=== PATIENT | female | born 1990 | race African-American/Black ===

== ENCOUNTER 2020-08-23 09:56 | Emergency (ER) | payer SELFPAY | END 2020-08-23 15:38 | disposition home or self-care (01) | LOC: CSHERS 09:56 | DX: M79.605 Pain in left leg (principal) ==

== ENCOUNTER 2021-04-14 08:04 | Emergency (ER) | payer MEDICAID, SELFPAY | END 2021-04-14 08:47 | disposition home or self-care (01) | LOC: CSHERS 08:04 | DX: K02.9 Dental caries, unspecified (principal); F17.210 Nicotine dependence, cigarettes, uncomplicated | CPT/HCPCS: 99283 ==

== ENCOUNTER 2021-09-09 22:52 | Day surgery (SDC) | payer OTHER ==
[2021-09-09 23:19] VITALS: BMI 31.1
[2021-09-09] MEDS ORDERED: hydrALAZINE 20 MG/ML VIAL SLOW IVP PRN (23:48)
== END 2021-09-10 01:30 | disposition home or self-care (01) ==
LOC: CSHLD/OP 22:52
PROVIDERS: ATTEND Obstetrics & Gynecology
DX: O99.891 Other specified diseases and conditions complicating pregnancy (principal); R10.2 Pelvic and perineal pain; O99.613 Diseases of the digestive system complicating pregnancy, third trimester; K21.9 Gastro-esophageal reflux disease without esophagitis; O99.013 Anemia complicating pregnancy, third trimester; D50.9 Iron deficiency anemia, unspecified; O99.333 Smoking (tobacco) complicating pregnancy, third trimester; F17.210 Nicotine dependence, cigarettes, uncomplicated; O34.219 Maternal care for unspecified type scar from previous cesarean delivery; Z3A.29 29 weeks gestation of pregnancy
CPT/HCPCS: 76815; 87480; 87510; 87660; 99284

== ENCOUNTER 2021-09-18 21:44 | Inpatient (IN) | payer OTHER ==
[2021-09-18] MEDS ORDERED: Betamet Acet/Betamet Na Ph 30 MG/5 ML VIAL ONE (22:24)
[2021-09-18] MEDS ORDERED: Ondansetron PF 4 MG/2 ML Vial IVP PRN ×2 (22:32→23:56)
[2021-09-18] MEDS ORDERED: Bicitra 30 ML UDCUP PO PRN (22:32)
[2021-09-18] MEDS ORDERED: hydrALAZINE 20 MG/ML VIAL SLOW IVP PRN (22:32)
[2021-09-18] MEDS ORDERED: Famotidine/PF 20 mg/2ml Vial SLOW IVP PRN (22:32)
[2021-09-18] MEDS ORDERED: Promethazine HCl 25 MG/ML VIAL IM PRN ×2 (22:32→23:56)
[2021-09-18] MEDS ORDERED: ceFAZolin 2 GM/Dextrose 50 ML IVPB ONE (22:41)
[2021-09-18] MEDS ORDERED: Famotidine/PF 20 mg/2ml Vial ONE (22:44)
[2021-09-18] MEDS ORDERED: Lactated Ringer's 1,000 ML IV SCH ×2 (22:45)
[2021-09-18] MEDS ORDERED: ceFAZolin 2 GM/Dextrose 50 ML 2 GM in Premix Bag 1 BAG IVPB SCH (22:45)
[2021-09-18 22:47] LABS: Hemoglobin 6.5 g/dL (12.0-15.5); Mean Corpuscular HGB CONC 29.4 g/dL (32.0-36.0); Mean Corpuscular Hemoglobin 19.5 pg (27.0-33.0); Mean Corpuscular Volume 66.4 fl (81.6-98.3); Mean Platelet Volume 10.6 fl (7.4-10.4); Platelet Count 290 10x3/uL (150-450); Red Blood Cell (RBC) Count 3.33 10x6/uL (3.90-5.03); White Blood Cell (WBC) Count 8.1 10x3/uL (3.5-10.5)
[2021-09-18] MEDS ORDERED: Fentanyl 100 MCG/2 ML VIAL ONE ×2 (22:49→23:27)
[2021-09-18] MEDS ORDERED: Succinylcholine 200 MG/10 ml SYRINGE FS ONE (22:49)
[2021-09-18] MEDS ORDERED: PROPOFOL 20 ML ONE (22:49)
[2021-09-18 22:57] LABS: ALT (SGPT) 6 U/L (8-55); AST (SGOT) 13 U/L (5-34); Albumin 3.3 g/dL (3.5-5.0); Alkaline Phosphatase 104 U/L (40-110); Anion Gap 13 mmol/L (10-20); BUN (Urea Nitrogen) 7 mg/dL (7.0-18.7); Bilirubin, Total 0.4 mg/dL (0.2-1.2); Calc. Creatinine Clearance 0 mL/min (70-130); Calcium 8.8 mg/dL (7.8-10.44); Carbon Dioxide 19 mmol/L (22-29); Chloride 106 mmol/L (98-107); Globulin 3.2 g/dL (2.4-3.5); Glucose 76 mg/dL (70-105); Potassium 3.8 mmol/L (3.5-5.1); Protein, Total 6.5 g/dL (6.0-8.3); Sodium 134 mmol/L (136-145)
[2021-09-18] MEDS ORDERED: PHENYLEPHRINE-NS 100 MCG/ML 10 ML SYRINGE ONE (23:00)
[2021-09-18] MEDS ORDERED: Ondansetron PF 4 MG/2 ML Vial ONE (23:10)
[2021-09-18] MEDS ORDERED: Dexamethasone 4 mg/ml Vial ONE (23:10)
[2021-09-18 23:14] LABS: Hep B Surf Ag Non-Reactive S/CO (NonReactive); Syphilis Antibody Nonreactive (Nonreactive); Syphilis Antibody Index 0.19 S/CO (<1.00 Non-Reactive)
[2021-09-18] MEDS ORDERED: Ketamine 50 MG/ML (10ML VIAL) ONE (23:15)
[2021-09-18] MEDS ORDERED: Glycopyrrolate 0.2 MG/ML 5 ML SYRINGE ONE (23:16)
[2021-09-18 23:21] LABS: HBSAg Index 0.22 S/CO (0-0.99)
[2021-09-18] MEDS ORDERED: Ketorolac Tromethamine 30 MG/ML VIAL ONE (23:35)
[2021-09-18 23:43] LABS: pH (Cord, venous) 7.228 (7.250-7.350)
[2021-09-18] MEDS ORDERED: Communication Order-Pharmacy FS SCH (23:45)
[2021-09-18] MEDS ORDERED: Ketorolac Tromethamine 30 MG/ML VIAL IVP SCH (23:45)
[2021-09-18] MEDS ORDERED: Fentanyl 100 MCG/2 ML VIAL SLOW IVP PRN (23:56)
[2021-09-18] MEDS ORDERED: diphenhydrAMINE 50 MG/ML VIAL IVP PRN (23:56)
[2021-09-18] MEDS ORDERED: Meperidine HCl/PF 25 MG/ML VIAL SLOW IVP PRN (23:56)
[2021-09-18] MEDS ORDERED: fentaNYL Citrate/PF 1,000 MCG in Sodium Chloride 0.9% 30 ML IV PRN (23:56)
[2021-09-18] MEDS ORDERED: Naloxone HCl 0.4 mg/ml Vial IV PRN (23:56)
[2021-09-18] MEDS ORDERED: diphenhydrAMINE 25 MG CAP PO PRN (23:56)
[2021-09-18] MEDS ORDERED: Zolpidem Tartrate 5 MG TAB PO PRN (23:56)
[2021-09-18] MEDS ORDERED: Ondansetron HCl/PF 4 MG/2 ML Vial IVP PRN (23:56)
[2021-09-18] MEDS ORDERED: diphenhydrAMINE 50 MG/ML VIAL IM PRN (23:56)
[2021-09-19 01:42] VITALS: BMI 44.8
[2021-09-19] MEDS ORDERED: HYDROcodone/Acetaminophen 5/325 mg Tablet PO PRN (05:15)
[2021-09-19] MEDS ORDERED: diphenhydrAMINE 25 MG CAP PO PRN (05:15)
[2021-09-19] MEDS ORDERED: Bisacodyl 10 MG SUPP PR PRN (05:15)
[2021-09-19] MEDS ORDERED: NS w/ Oxytocin 30 units 500 ML IV SCH (05:15)
[2021-09-19] MEDS ORDERED: Promethazine HCl 25 MG/ML VIAL IM PRN (05:15)
[2021-09-19] MEDS ORDERED: hydrALAZINE 20 MG/ML VIAL SLOW IVP PRN (05:15)
[2021-09-19] MEDS ORDERED: Boostrix 0.5 ML (Tdap) VIAL IM ONE (05:15)
[2021-09-19] MEDS ORDERED: Ondansetron PF 4 MG/2 ML Vial IVP PRN (05:15)
[2021-09-19] MEDS: Ketorolac Tromethamine 30 MG/ML VIAL IVP SCH ×3 (07:36→17:42)
[2021-09-19] MEDS: Ferrous Sulfate 325 MG TAB PO SCH ×2 (08:16→21:23)
[2021-09-19] MEDS: Lactated Ringer's 1,000 ML IV SCH ×2 (08:19→13:16)
[2021-09-19] MEDS: Prenatal Vitamin 1 TAB PO SCH (12:07)
[2021-09-19] MEDS: Docusate 100 MG CAP PO SCH ×2 (12:07→21:23)
[2021-09-19 13:56] LABS: SARS-CoV-2 NAA Rapid Test Not Detected (NotDetected)
[2021-09-19] MEDS: HYDROcodone/Acetaminophen 5/325 mg Tablet PO PRN ×2 (17:06→21:24)
[2021-09-19] MEDS: Simethicone Chewable 80 MG TAB PO PRN (17:47)
[2021-09-20] MEDS: Simethicone Chewable 80 MG TAB PO PRN (00:02)
[2021-09-20] MEDS: HYDROcodone/Acetaminophen 5/325 mg Tablet PO PRN ×2 (02:01→08:09)
[2021-09-20] MEDS ORDERED: Witch Hazel-Glycerin 1 EACH JAR TOP PRN (02:20)
[2021-09-20] MEDS: Ibuprofen 800 MG TAB PO SCH ×3 (05:26→22:49)
[2021-09-20] MEDS: Ferrous Sulfate 325 MG TAB PO SCH ×3 (05:47→22:49)
[2021-09-20 06:04] LABS: Hemoglobin 6.6 g/dL (12.0-15.5); Mean Corpuscular HGB CONC 31.3 g/dL (32.0-36.0); Mean Corpuscular Hemoglobin 23.3 pg (27.0-33.0); Mean Corpuscular Volume 74.6 fl (81.6-98.3); Mean Platelet Volume 10.6 fl (7.4-10.4); Platelet Count 211 10x3/uL (150-450); RBC Distribution Width 21.7 % (11.5-14.5); Red Blood Cell (RBC) Count 2.83 10x6/uL (3.90-5.03); White Blood Cell (WBC) Count 9.1 10x3/uL (3.5-10.5)
[2021-09-20] MEDS: Prenatal Vitamin 1 TAB PO SCH (08:08)
[2021-09-20] MEDS: Docusate 100 MG CAP PO SCH ×2 (08:08→22:49)
[2021-09-20] MEDS: traMADol HCl 50 MG TAB PO PRN ×4 (11:07→22:49)
[2021-09-20] MEDS: Acetaminophen 500 MG TAB PO PRN (11:08)
[2021-09-20 11:40] LABS: Bilirubin Neg (Negative); Blood, Urine 250 (Negative); Clarity Slightly Cloudy (Clear); Glucose, Urine (Dipstick) Normal (Negative); Ketone, Urine Negative (Negative); Leukocyte 25 (Negative); Nitrite Negative (Negative); Protein, Urine (Dipstick) Negative (Neg-Trace); Urobilinogen Normal mg/dL (Less than 2)
[2021-09-20 12:15] LABS: Bacteria/HPF Rare-Few HPF (None Seen); RBC/HPF 21-50 HPF (0-3); Squamous Epithelial 0-3 HPF (0-3); WBC/HPF 0-3 HPF (0-3)
[2021-09-21] MEDS: traMADol HCl 50 MG TAB PO PRN ×3 (05:17→17:49)
[2021-09-21] MEDS: Ibuprofen 800 MG TAB PO SCH ×3 (05:17→21:29)
[2021-09-21] MEDS: Prenatal Vitamin 1 TAB PO SCH ×2 (08:56→09:05)
[2021-09-21] MEDS: Ferrous Sulfate 325 MG TAB PO SCH ×3 (08:56→21:29)
[2021-09-21] MEDS: Docusate 100 MG CAP PO SCH ×2 (08:56→21:29)
[2021-09-21] MEDS ORDERED: Preparation H Ointment 28 GM TUBE TOP PRN (10:44)
[2021-09-21] MEDS: Acetaminophen 500 MG TAB PO PRN (11:28)
[2021-09-21] MEDS ORDERED: Preparation H Ointment 57 gram tube TOP PRN (12:00)
[2021-09-21] MEDS: Proctozone-HC 30 GM TUBE TOP SCH ×2 (13:04→21:33)
[2021-09-21] MEDS: Simethicone Chewable 80 MG TAB PO PRN (23:43)
[2021-09-22] MEDS: traMADol HCl 50 MG TAB PO PRN ×2 (02:58→18:53)
[2021-09-22] MEDS: Ibuprofen 800 MG TAB PO SCH ×2 (05:20→12:48)
[2021-09-22 06:14] LABS: Hemoglobin 9.7 g/dL (12.0-15.5); Mean Corpuscular HGB CONC 32.1 g/dL (32.0-36.0); Mean Corpuscular Hemoglobin 24.7 pg (27.0-33.0); Mean Platelet Volume 10.4 fl (7.4-10.4); Platelet Count 271 10x3/uL (150-450); RBC Distribution Width 23.4 % (11.5-14.5); Red Blood Cell (RBC) Count 3.92 10x6/uL (3.90-5.03); White Blood Cell (WBC) Count 9.2 10x3/uL (3.5-10.5)
[2021-09-22] MEDS: Prenatal Vitamin 1 TAB PO SCH (07:39)
[2021-09-22] MEDS: Docusate 100 MG CAP PO SCH (07:39)
[2021-09-22] MEDS: Ferrous Sulfate 325 MG TAB PO SCH (07:39)
[2021-09-22] MEDS: Proctozone-HC 30 GM TUBE TOP SCH (07:40)
[2021-09-22 07:51] VITALS: BP 113/76; TEMP 98.2
[2021-09-22] MEDS ORDERED: Milk Of Magnesia 30 ML UDCUP PO SCH (08:00)
[2021-09-22] MEDS: Simethicone Chewable 80 MG TAB PO PRN (12:49)
[2021-09-22] MEDS ORDERED: Hydrocortisone 2.5% Cream 30 GM TUBE TOP SCH (21:00)
== END 2021-09-22 19:21 | disposition home or self-care (01) | DRG 786 ==
LOC: CSHLD/OP 21:44 → CSHLD 23:32 → CSHPP 09-19 04:32
PROVIDERS: ADMIT Family Medicine; ATTEND Family Medicine
PROC: 10D00Z1 Extraction of Products of Conception, Low, Open Approach (ICD-10-PCS; principal; 2021-09-18)
PROC: 3E0334Z Introduction of Serum, Toxoid and Vaccine into Peripheral Vein, Percutaneous Approach (ICD-10-PCS; 2021-09-19)
PROC: 30233K1 Transfusion of Nonautologous Frozen Plasma into Peripheral Vein, Percutaneous Approach (ICD-10-PCS; 2021-09-19)
PROC: 30233N1 Transfusion of Nonautologous Red Blood Cells into Peripheral Vein, Percutaneous Approach (ICD-10-PCS; 2021-09-19)
DX: O76 Abnormality in fetal heart rate and rhythm complicating labor and delivery (principal); O45.93 Premature separation of placenta, unspecified, third trimester; Z3A.31 31 weeks gestation of pregnancy; Z37.0 Single live birth; O34.211 Maternal care for low transverse scar from previous cesarean delivery; Z20.822 Contact with and (suspected) exposure to COVID-19; O26.893 Other specified pregnancy related conditions, third trimester; Z67.11 Type A blood, Rh negative
CPT/HCPCS: 36415; 36430; 51702; 80053; 81001; 82805; 85027; 85461; 86780; 86850; 86870; 86900; 86901; 87340; 88307; 90384; 96372; 99285; J0690; J0702; J1100; J1885; J2405; J2704; J3010; J3490; P9016; P9059; S0028; U0002

== ENCOUNTER 2022-02-05 19:23 | Emergency (ER) | payer OTHER | END 2022-02-05 20:49 | disposition home or self-care (01) | LOC: CSHERS 19:23 | DX: Z02.89 Encounter for other administrative examinations (principal); F17.210 Nicotine dependence, cigarettes, uncomplicated | CPT/HCPCS: 99281 ==

== ENCOUNTER 2022-02-10 08:13 | Emergency (ER) | payer OTHER | END 2022-02-10 08:47 | disposition home or self-care (01) | LOC: CSHERS 08:13 | DX: K08.89 Other specified disorders of teeth and supporting structures (principal); F17.210 Nicotine dependence, cigarettes, uncomplicated | CPT/HCPCS: 99282 ==

== ENCOUNTER 2022-02-13 13:02 | Emergency (ER) | payer OTHER ==
[2022-02-15] MEDS ORDERED: Ketorolac Tromethamine 30 MG/ML VIAL ONE (09:00)
== END 2022-02-13 14:08 | disposition left against medical advice (07) ==
LOC: CSHERS 13:02
DX: Z53.21 Procedure and treatment not carried out due to patient leaving prior to being seen by health care provider (principal)

== ENCOUNTER 2022-02-15 22:37 | Emergency (ER) | payer OTHER ==
[2022-02-16] MEDS ORDERED: Ondansetron PF 4 MG/2 ML Vial ONE (00:56)
[2022-02-16] MEDS ORDERED: Ketorolac Tromethamine 30 MG/ML VIAL ONE (00:56)
[2022-02-16] MEDS ORDERED: Lorazepam 2 MG/ML VIAL ONE (00:57)
[2022-02-16 01:02] LABS: #Basophils 0.1 10x3/uL (0.0-0.2); #Eosinphils 0.1 10x3/uL (0.0-0.5); #Monocytes 0.4 10x3/uL (0.0-1.1); #Neutrophils 3.8 10x3/uL (1.5-8.4); %Basophils 0.9 % (0.0-2.0); %Eosinophils 1.7 % (0.0-6.0); %Lymphocytes 25.7 % (18.0-47.0); %Monocytes 6.3 % (0.0-10.0); %Neutrophils 65.1 % (40.0-75.0); Hemoglobin 10.1 g/dL (12.0-15.5); Mean Corpuscular HGB CONC 33.1 g/dL (32.0-36.0); Mean Corpuscular Hemoglobin 28.4 pg (27.0-33.0); Mean Corpuscular Volume 85.7 fl (81.6-98.3); Mean Platelet Volume 9.8 fl (7.4-10.4); Platelet Count 299 10x3/uL (150-450); RBC Distribution Width 15.4 % (11.5-14.5); Red Blood Cell (RBC) Count 3.56 10x6/uL (3.90-5.03); White Blood Cell (WBC) Count 5.8 10x3/uL (3.5-10.5)
[2022-02-16 01:15] LABS: Acetaminophen Less than 10.0 mcg/mL (10.0-30.0); Alcohol Less than 10 mg/dL (Less than 10); Salicylate Less than 8.0 mg/dL (15.0-30.0)
[2022-02-16 01:25] LABS: ALT (SGPT) Less than 6 U/L (8-55); AST (SGOT) 10 U/L (5-34); Albumin 3.5 g/dL (3.5-5.0); Alkaline Phosphatase 46 U/L (40-110); Anion Gap 12 mmol/L (10-20); BUN (Urea Nitrogen) 12 mg/dL (7.0-18.7); Bilirubin, Total 0.4 mg/dL (0.2-1.2); Calc. Creatinine Clearance 0 mL/min (70-130); Calcium 7.4 mg/dL (7.8-10.44); Carbon Dioxide 16 mmol/L (22-29); Chloride 113 mmol/L (98-107); Estimated GFR 125; Globulin 2.8 g/dL (2.4-3.5); Glucose 79 mg/dL (70-105); Lipase 19 U/L (8-78); Magnesium 1.7 mg/dL (1.6-2.6); Protein, Total 6.3 g/dL (6.0-8.3); Sodium 138 mmol/L (136-145)
[2022-02-16 01:27] LABS: Potassium 2.8 mmol/L (3.5-5.1)
[2022-02-16] MEDS ORDERED: Potassium Chloride 20 MEQ TAB ONE (01:48)
[2022-02-16] MEDS ORDERED: Magnesium 2 GM/50 ML BAG (IN WATER) ONE (01:49)
== END 2022-02-16 05:35 | disposition home or self-care (01) ==
LOC: CSHERS 22:37
DX: F41.9 Anxiety disorder, unspecified (principal); E87.6 Hypokalemia; D64.9 Anemia, unspecified; F17.210 Nicotine dependence, cigarettes, uncomplicated
CPT/HCPCS: 70450; 80053; 80307; 83690; 83735; 84443; 84484; 85025; 96365; 96366; 96375; J1885; J2060; J2405; J3475

== ENCOUNTER 2022-02-18 13:35 | Emergency (ER) | payer OTHER ==
[2022-02-18] MEDS ORDERED: Acetaminophen 500 MG TAB ONE (14:25)
[2022-02-18 15:52] LABS: Anion Gap 14 mmol/L (10-20); BUN (Urea Nitrogen) 12 mg/dL (7.0-18.7); Calc. Creatinine Clearance 0 mL/min (70-130); Carbon Dioxide 22 mmol/L (22-29); Chloride 105 mmol/L (98-107); Estimated GFR 119; Glucose 87 mg/dL (70-105); Potassium 4.1 mmol/L (3.5-5.1); Sodium 137 mmol/L (136-145)
== END 2022-02-18 16:20 | disposition home or self-care (01) ==
LOC: CSHERS 13:35
DX: R42 Dizziness and giddiness (principal); R51.9 Headache, unspecified; F17.210 Nicotine dependence, cigarettes, uncomplicated
CPT/HCPCS: 36415; 80048; 93005

== ENCOUNTER 2022-02-22 20:37 | Emergency (ER) | payer OTHER | END 2022-02-22 22:46 | disposition left against medical advice (07) | LOC: CSHERS 20:37 | DX: Z53.21 Procedure and treatment not carried out due to patient leaving prior to being seen by health care provider (principal) ==

== ENCOUNTER 2022-04-10 21:47 | Emergency (ER) | payer OTHER | END 2022-04-11 02:46 | disposition left against medical advice (07) | LOC: CSHERS 21:47 | DX: Z53.21 Procedure and treatment not carried out due to patient leaving prior to being seen by health care provider (principal) ==

== ENCOUNTER 2022-04-21 04:28 | Emergency (ER) | payer OTHER | END 2022-04-21 05:05 | disposition home or self-care (01) | LOC: CSHERS 04:28 | DX: M79.605 Pain in left leg (principal); F17.210 Nicotine dependence, cigarettes, uncomplicated | CPT/HCPCS: 99283 ==

== ENCOUNTER 2022-04-30 19:29 | Emergency (ER) | payer OTHER ==
[2022-04-30 20:51] LABS: #Basophils 0.1 10x3/uL (0.0-0.2); #Eosinphils 0.1 10x3/uL (0.0-0.5); #Monocytes 0.5 10x3/uL (0.0-1.1); #Neutrophils 4.7 10x3/uL (1.5-8.4); %Basophils 0.8 % (0.0-2.0); %Eosinophils 1.4 % (0.0-6.0); %Lymphocytes 30.5 % (18.0-47.0); %Monocytes 6.9 % (0.0-10.0); %Neutrophils 60.1 % (40.0-75.0); Hemoglobin 11.2 g/dL (12.0-15.5); Mean Corpuscular HGB CONC 33.7 g/dL (32.0-36.0); Mean Corpuscular Hemoglobin 27.6 pg (27.0-33.0); Mean Corpuscular Volume 81.8 fl (81.6-98.3); Mean Platelet Volume 9.6 fl (7.4-10.4); Platelet Count 418 10x3/uL (150-450); RBC Distribution Width 13.6 % (11.5-14.5); Red Blood Cell (RBC) Count 4.06 10x6/uL (3.90-5.03); White Blood Cell (WBC) Count 7.8 10x3/uL (3.5-10.5)
[2022-04-30 20:59] LABS: SARS-CoV-2 NAA Rapid Test Not Detected (NotDetected)
[2022-04-30 21:07] LABS: ALT (SGPT) 8 U/L (8-55); AST (SGOT) 14 U/L (5-34); Albumin 4.3 g/dL (3.5-5.0); Alkaline Phosphatase 60 U/L (40-110); Anion Gap 13 mmol/L (10-20); BUN (Urea Nitrogen) 14 mg/dL (7.0-18.7); Bilirubin, Total 0.4 mg/dL (0.2-1.2); Calc. Creatinine Clearance 0 mL/min (70-130); Calcium 9.2 mg/dL (7.8-10.44); Carbon Dioxide 23 mmol/L (22-29); Chloride 105 mmol/L (98-107); Estimated GFR 109; Globulin 3.6 g/dL (2.4-3.5); Glucose 107 mg/dL (70-105); Lipase 26 U/L (8-78); Magnesium 2.1 mg/dL (1.6-2.6); Potassium 3.4 mmol/L (3.5-5.1); Protein, Total 7.9 g/dL (6.0-8.3); Sodium 138 mmol/L (136-145)
[2022-04-30 21:08] LABS: Acetaminophen Less than 10.0 mcg/mL (10.0-30.0); Alcohol Less than 10 mg/dL (Less than 10); Salicylate Less than 8.0 mg/dL (15.0-30.0)
[2022-04-30] MEDS ORDERED: Lorazepam 2 MG/ML VIAL ONE (22:15)
[2022-04-30] MEDS ORDERED: Ondansetron PF 4 MG/2 ML Vial ONE (22:15)
== END 2022-04-30 23:37 | disposition home or self-care (01) ==
LOC: CSHERS 19:29
DX: E86.0 Dehydration (principal); R00.0 Tachycardia, unspecified; Z20.822 Contact with and (suspected) exposure to COVID-19; F17.210 Nicotine dependence, cigarettes, uncomplicated
CPT/HCPCS: 80053; 80307; 83690; 83735; 84443; 84484; 85025; 86140; 93005; 96361; 96374; 96375; J2060; J2405; U0002

== ENCOUNTER 2022-05-08 18:02 | Emergency (ER) | payer OTHER ==
[2022-05-08 18:52] LABS: #Eosinphils 0.2 10x3/uL (0.0-0.5); #Monocytes 0.5 10x3/uL (0.0-1.1); #Neutrophils 5.1 10x3/uL (1.5-8.4); %Basophils 0.4 % (0.0-2.0); %Eosinophils 2.9 % (0.0-6.0); %Lymphocytes 23.6 % (18.0-47.0); %Monocytes 6.4 % (0.0-10.0); %Neutrophils 66.4 % (40.0-75.0); Hemoglobin 11.1 g/dL (12.0-15.5); Mean Corpuscular Hemoglobin 27.1 pg (27.0-33.0); Mean Corpuscular Volume 82.2 fl (81.6-98.3); Mean Platelet Volume 9.7 fl (7.4-10.4); Platelet Count 437 10x3/uL (150-450); RBC Distribution Width 13.3 % (11.5-14.5); Red Blood Cell (RBC) Count 4.09 10x6/uL (3.90-5.03); White Blood Cell (WBC) Count 7.6 10x3/uL (3.5-10.5)
[2022-05-08 18:59] LABS: BHCG - Serum Negative (NEGATIVE); Pregs Control Background? CLEAR/WHITE (CLR/WHITE); Pregs Control Bar Appear? YES (CONTROL BAR)
[2022-05-08 19:10] LABS: ALT (SGPT) 9 U/L (8-55); AST (SGOT) 12 U/L (5-34); Albumin 4.3 g/dL (3.5-5.0); Alkaline Phosphatase 64 U/L (40-110); Anion Gap 15 mmol/L (10-20); BUN (Urea Nitrogen) 10 mg/dL (7.0-18.7); Bilirubin, Total 0.3 mg/dL (0.2-1.2); Calc. Creatinine Clearance 0 mL/min (70-130); Carbon Dioxide 22 mmol/L (22-29); Chloride 106 mmol/L (98-107); Estimated GFR 104; Globulin 3.4 g/dL (2.4-3.5); Glucose 121 mg/dL (70-105); Potassium 4.1 mmol/L (3.5-5.1); Protein, Total 7.7 g/dL (6.0-8.3); Sodium 139 mmol/L (136-145)
[2022-05-08 20:32] LABS: Bilirubin Neg (Negative); Blood, Urine Negative (Negative); Clarity Clear (Clear); Glucose, Urine (Dipstick) Normal (Negative); Ketone, Urine Negative (Negative); Leukocyte Negative (Negative); Nitrite Negative (Negative); Protein, Urine (Dipstick) 15 mg/dl (Neg-Trace); Specific Gravity, Urine 1.005 (1.005-1.030); Urobilinogen Normal mg/dL (Less than 2)
== END 2022-05-08 21:20 | disposition home or self-care (01) ==
LOC: CSHERS 18:02
DX: R00.2 Palpitations (principal); R55 Syncope and collapse; F17.210 Nicotine dependence, cigarettes, uncomplicated
CPT/HCPCS: 71275; 80053; 81003; 84443; 84484; 84703; 85025; 93005; 96360

== ENCOUNTER 2022-06-01 20:49 | Emergency (ER) | payer OTHER ==
[2022-06-01] MEDS ORDERED: Ondansetron ODT 4 MG TAB ONE (22:18)
[2022-06-01] MEDS ORDERED: Ketorolac Tromethamine 30 MG/ML VIAL ONE (22:18)
== END 2022-06-01 22:29 | disposition home or self-care (01) ==
LOC: CSHERS 20:49
DX: K04.7 Periapical abscess without sinus (principal); F17.210 Nicotine dependence, cigarettes, uncomplicated
CPT/HCPCS: 96372; 99282; J1885; Q0162

== ENCOUNTER 2022-06-03 22:33 | Emergency (ER) | payer OTHER | END 2022-06-04 00:16 | disposition home or self-care (01) | LOC: CSHERS 22:33 | DX: F41.0 Panic disorder [episodic paroxysmal anxiety] (principal); R00.2 Palpitations; F17.210 Nicotine dependence, cigarettes, uncomplicated | CPT/HCPCS: 93005; 99283 ==

== ENCOUNTER 2022-06-13 19:31 | Emergency (ER) | payer OTHER ==
[2022-06-13] MEDS ORDERED: Mag-Al Plus 1200 MG/1200 MG/120 MG/30 ML UDCUP ONE (20:38)
[2022-06-13] MEDS ORDERED: Lidocaine Viscous Sol 2% 15 ml UD Cup ONE (20:39)
== END 2022-06-13 21:23 | disposition home or self-care (01) ==
LOC: CSHERS 19:31
DX: K21.9 Gastro-esophageal reflux disease without esophagitis (principal); F17.210 Nicotine dependence, cigarettes, uncomplicated
CPT/HCPCS: 93005

== ENCOUNTER 2022-06-28 20:33 | Emergency (ER) | payer OTHER | END 2022-06-28 22:24 | disposition home or self-care (01) | LOC: CSHERS 20:33 | DX: H69.92 Unspecified Eustachian tube disorder, left ear (principal); F17.210 Nicotine dependence, cigarettes, uncomplicated | CPT/HCPCS: 99282 ==

== ENCOUNTER 2022-08-20 19:20 | Emergency (ER) | payer OTHER | END 2022-08-20 21:22 | disposition left against medical advice (07) | LOC: CSHERS 19:20 | DX: Z53.21 Procedure and treatment not carried out due to patient leaving prior to being seen by health care provider (principal) ==

== ENCOUNTER 2022-10-11 21:06 | Emergency (ER) | payer OTHER ==
[2022-10-11] MEDS ORDERED: Ketorolac Tromethamine 30 MG/ML VIAL ONE (21:56)
[2022-10-11] MEDS ORDERED: Meclizine HCl 25 MG TAB ONE (21:56)
== END 2022-10-11 22:02 | disposition home or self-care (01) ==
LOC: CSHERS 21:06
DX: R51.9 Headache, unspecified (principal); R42 Dizziness and giddiness; F17.210 Nicotine dependence, cigarettes, uncomplicated
CPT/HCPCS: 99283; J1885

== ENCOUNTER 2022-10-14 14:46 | Emergency (ER) | payer OTHER ==
[2022-10-14 17:14] LABS: #Basophils 0.1 10x3/uL (0.0-0.2); #Eosinphils 0.1 10x3/uL (0.0-0.5); #Monocytes 0.4 10x3/uL (0.0-1.1); %Basophils 1.3 % (0.0-2.0); %Eosinophils 2.3 % (0.0-6.0); %Lymphocytes 34.1 % (18.0-47.0); %Monocytes 7.6 % (0.0-10.0); %Neutrophils 54.3 % (40.0-75.0); Hemoglobin 10.3 g/dL (12.0-15.5); Mean Corpuscular HGB CONC 29.8 g/dL (32.0-36.0); Mean Corpuscular Hemoglobin 22.7 pg (27.0-33.0); Mean Corpuscular Volume 76.2 fl (81.6-98.3); Mean Platelet Volume 9.5 fl (7.4-10.4); Platelet Count 447 10x3/uL (150-450); RBC Distribution Width 16.6 % (11.5-14.5); Red Blood Cell (RBC) Count 4.54 10x6/uL (3.90-5.03); White Blood Cell (WBC) Count 5.5 10x3/uL (3.5-10.5)
[2022-10-14 17:15] LABS: BHCG - Serum Negative (NEGATIVE); Pregs Control Background? CLEAR/WHITE (CLR/WHITE); Pregs Control Bar Appear? YES (CONTROL BAR)
[2022-10-14 17:20] LABS: ALT (SGPT) 10 U/L (8-55); AST (SGOT) 17 U/L (5-34); Albumin 4.4 g/dL (3.5-5.0); Alkaline Phosphatase 57 U/L (40-110); Anion Gap 14 mmol/L (10-20); BUN (Urea Nitrogen) 11 mg/dL (7.0-18.7); Bilirubin, Total 0.4 mg/dL (0.2-1.2); Calc. Creatinine Clearance 0 mL/min (70-130); Calcium 9.1 mg/dL (7.8-10.44); Carbon Dioxide 24 mmol/L (22-29); Chloride 105 mmol/L (98-107); Estimated GFR 97; Globulin 3.6 g/dL (2.4-3.5); Glucose 94 mg/dL (70-105); Potassium 3.7 mmol/L (3.5-5.1); Sodium 139 mmol/L (136-145)
[2022-10-14 18:49] LABS: Hypochromia SLIGHT = 6-15 cells (100X) (0-5/hpf)
[2022-10-14 18:50] LABS: Platelet Adequacy Comment Appears Adequate
== END 2022-10-14 19:44 | disposition home or self-care (01) ==
LOC: CSHERS 14:46
DX: K29.70 Gastritis, unspecified, without bleeding (principal); D64.9 Anemia, unspecified; F17.210 Nicotine dependence, cigarettes, uncomplicated
CPT/HCPCS: 80053; 84703; 85025; 99284

== ENCOUNTER 2023-03-25 04:50 | Emergency (ER) | payer OTHER, SELFPAY ==
[2023-03-25 05:38] LABS: BHCG - Serum Negative (NEGATIVE); Pregs Control Background? CLEAR/WHITE (CLR/WHITE); Pregs Control Bar Appear? YES (CONTROL BAR)
== END 2023-03-25 06:17 | disposition home or self-care (01) ==
LOC: CSHERS 04:50
DX: K59.00 Constipation, unspecified (principal); F17.210 Nicotine dependence, cigarettes, uncomplicated
CPT/HCPCS: 74022; 84703

== ENCOUNTER 2025-02-25 18:23 | Emergency (ER) | payer OTHER ==
[2025-02-25 19:16] LABS: Glucose, Urine (Dipstick) Normal (Negative); Protein, Urine (Dipstick) 100 mg/dl (Neg-Trace); Specific Gravity, Urine 1.005 (1.005-1.030)
[2025-02-25 19:18] LABS: Leukocyte Unable to Interpret (Negative)
[2025-02-25 19:27] LABS: Bacteria/HPF 3+ HPF (None Seen); CAUTI Indications for Culture Acute Hematuria
[2025-02-25 19:28] LABS: Mucous/LPF 1+ LPF (<2+)
[2025-02-25 19:29] LABS: Urine Culture Reflex No No
[2025-02-25 19:34] LABS: #Basophils 0.04 10x3/uL (0.0-0.2); #Eosinophils 0.10 10x3/uL (0.0-0.5); #Monocytes 0.68 10x3/uL (0.0-1.1); #Neutrophils 7.44 10x3/uL (1.5-8.4); %Basophils 0.4 % (0.0-2.0); %Eosinophils 1.0 % (0.0-6.0); %Lymphocytes 13.4 % (18.0-47.0); %Monocytes 6.8 % (0.0-10.0); %Neutrophils 74.4 % (40.0-75.0); Hematocrit 30.9 % (34.9-44.5); Hemoglobin 9.8 g/dL (12.0-15.5); Mean Corpuscular Hemoglobin 25.8 pg (27.0-33.0); Mean Corpuscular Volume 81.3 fL (81.6-98.3); Platelet Count 382 10x3/uL (150-450); Red Blood Cell (RBC) Count 3.80 10x6/uL (3.90-5.03); White Blood Cell (WBC) Count 10.00 10x3/uL (3.5-10.5)
[2025-02-25 19:41] LABS: ALT (SGPT) 10 U/L (Less than 34); AST (SGOT) 63 U/L (11-34); Albumin 4.3 g/dL (3.1-4.5); Alkaline Phosphatase 75 U/L (40-110); Anion Gap 15 mmol/L (10-20); BUN (Urea Nitrogen) 13 mg/dL (7.0-18.7); Bilirubin, Total 2.7 mg/dL (0.3-1.2); Calc. Creatinine Clearance 0 mL/min (70-130); Calcium 9.4 mg/dL (7.8-10.44); Carbon Dioxide 23 mmol/L (22-29); Chloride 101 mmol/L (98-107); Globulin 4.3 g/dL (2.4-3.5); Glucose 133 mg/dL (70-105); Lipase 17 U/L (8-78); Potassium 3.9 mmol/L (3.5-5.1); Sodium 135 mmol/L (136-145)
[2025-02-25] MEDS ORDERED: cefTRIAXone (ROCEPHIN) 1 GM VIAL ONE (20:37)
== END 2025-02-25 23:50 | disposition home or self-care (01) ==
LOC: CSHERS 18:23
DX: N39.0 Urinary tract infection, site not specified (principal); E80.6 Other disorders of bilirubin metabolism; F17.210 Nicotine dependence, cigarettes, uncomplicated
CPT/HCPCS: 74177; 76705; 80053; 81001; 83605; 83690; 84702; 85025; 86850; 86900; 86901; 96365; J0696